=== PATIENT | male | born 1970 | race Caucasian/White ===

== ENCOUNTER → 2016-08-30 | Outpatient (CLI) | payer OTHER ==
[~2016-08-30] MED LIST: ATOR40TA PO; DEXT30CA6 PO; GADOBUTROL 7.5 MMOL/7.5 ML VIAL IV ONE; OMEP20TA63 PO; VALS40TA2 PO
--- NOTE | 2016-08-30 16:57 | KCIC ---
MR BRAIN WITH CONTRAST HISTORY: Headache with visual disturbances COMPARISON: None TECHNIQUE: Axial diffusion-weighted imaging was obtained. Additional axial FLAIR, and axial T2 weighted images were obtained. Sagittal and axial T1-weighted imaging was obtained prior to the administration of intravenous contrast material. Additional sagittal, axial, and coronal T1-weighted imaging was obtained after the administration of gadolinium based intravenous contrast material. FINDINGS: No abnormal signal within the brain parenchyma. No abnormal enhancement identified. No restricted diffusion to indicate an acute infarct. No evidence of acute intracranial hemorrhage. No extra-axial fluid collections are identified. There is no mass effect or midline shift. Ventricular size is appropriate. Basal cisterns are patent. Visualized flow voids are normal in course, caliber, and signal. Globes and orbits are unremarkable. Paranasal sinuses and mastoid air cells are clear. IMPRESSION: Unremarkable MR examination of the brain with contrast. No restricted diffusion to indicate acute infarct. No abnormal enhancement. Electronically signed by: Sukhdev Smith MD (08/30/2016 4:53 PM)
== END | disposition home or self-care (01) ==
LOC: KCIC MRI 14:44
PROVIDERS: ATTEND Nurse Practitioner Family
DX: H53.9 Unspecified visual disturbance (principal); R51 Headache
CPT/HCPCS: 70553; A9585